=== PATIENT | male | born 1990 | race Asian ===

== ENCOUNTER 2018-03-25 12:59 | Emergency (ER) | payer OTHER ==
[~2018-03-25] VITALS: Ht 177.8 cm; Wt 91.1 kg
[2018-03-25 13:02] VITALS: Ht 177.8 cm; Wt 91.1 kg
--- NOTE | 2018-03-25 14:02 | ERD ---
ER Documentation Chief Complaint Chief Complaint right abdominal pain today HPI 27-year-old male presents with complaint of lower right quadrant abdominal pain. Pain started at 12 PM today, states that it was the worst pain he has ever experienced so much so that he was shaking. States that the pain just recently away upon arrival to the ED. Denies treatments. Denies nausea vomiting diarrhea. States that he is not hungry. He is able to ambulate normally. Denies testicular pain or dysuria. Denies past medical history. Denies allergies. Denies medications. Denies surgeries. States that he has about 20 drinks a week. ROS All systems reviewed and are negative except as per history of present illness. Medications Home Meds Active Scripts Ibuprofen* (Motrin*) 600 Mg Tab, 600 MG PO Q6 for pain, #30 TAB Prov:LISBETH ARORA 03/25/18 Allergies Allergies: Coded Allergies: No Known Allergy (Unverified , 03/25/18) PMhx/Soc Medical and Surgical Hx: pt denies Medical Hx, pt denies Surgical Hx Hx Alcohol Use: Yes (1-2xa week) Hx Substance Use: No Hx Tobacco Use: Yes Smoking Status: Current some day smoker FmHx Family History: No diabetes, No coronary disease, No other Physical Exam Vitals Vital Signs Date Temp Pulse Resp B/P (MAP) Pulse Ox O2 O2 Flow FiO2 Time Delivery Rate 03/25/18 99.4 72 18 155/86 100 13:02 (109) Physical Exam General: Well developed, well nourished. No acute distress. Heart: RR w/o murmur, rubs, or gallops. Lungs: Clear to auscultation bilaterally w/o wheezes, crackles, rhonchi. Symmetric rise and fall. Equal breath sounds. Abdomen: Soft, nontender, with no rigidity or guarding noted. No masses, lesions, or ecchymoses. Normoactive bowel sounds. No McBurney's point tenderness. Patient ambulatory. No tenderness to palpation in splenic area or splenomegaly. No CVA tenderness. Able to jump up and down exam. : Non tender testes. No edema or erythema noted. No signs of phimoses or torsion. Skin: No rash or other lesions noted. Color normal for ethnicity. Psych: Normal mood and affect. Result Diagram: 03/25/18 1408 03/25/18 1408 Results 24 hrs Laboratory Tests Test 03/25/18 14:08 White Blood Count 11.5 10^3/ul Red Blood Count 5.08 10^6/ul Hemoglobin 15.2 g/dl Hematocrit 45.8 % Mean Corpuscular Volume 90.2 fl Mean Corpuscular Hemoglobin 29.9 pg Mean Corpuscular Hemoglobin Concent 33.2 g/dl Red Cell Distribution Width 12.1 % Platelet Count 199 10^3/UL Mean Platelet Volume 9.9 fl Immature Granulocytes % 0.300 % Neutrophils % 83.0 % Lymphocytes % 7.9 % Monocytes % 7.3 % Eosinophils % 1.1 % Basophils % 0.4 % Nucleated Red Blood Cells % 0.0 /100WBC Immature Granulocytes # 0.040 10^3/ul Neutrophils # 9.6 10^3/ul Lymphocytes # 0.9 10^3/ul Monocytes # 0.8 10^3/ul Eosinophils # 0.1 10^3/ul Basophils # 0.1 10^3/ul Nucleated Red Blood Cells # 0.0 10^3/ul Urine Color YELLOW Urine Clarity CLEAR Urine pH 6.0 Urine Specific [place] 1.012 Urine Ketones NEGATIVE mg/dL Urine Nitrite NEGATIVE mg/dL Urine Bilirubin NEGATIVE mg/dL Urine Urobilinogen NEGATIVE mg/dL Urine Leukocyte Esterase NEGATIVE Megan/ul Urine Microscopic RBC 11 /HPF Urine Microscopic WBC 1 /HPF Urine Mucus FEW /HPF Urine Hemoglobin 1+ mg/dL Urine Glucose NEGATIVE mg/dL Urine Total Protein NEGATIVE mg/dl Sodium Level 143 mmol/L Potassium Level 4.4 mmol/L Chloride Level 101 mmol/L Carbon Dioxide Level 33 mmol/L Anion Gap 9 Blood Urea Nitrogen 14 mg/dl Creatinine 0.91 mg/dl Est Glomerular Filtrat Rate mL/min > 60 mL/min Glucose Level 101 mg/dl Calcium Level 9.6 mg/dl Total Bilirubin 0.6 mg/dl Direct Bilirubin 0.00 mg/dl Indirect Bilirubin 0.6 mg/dl Aspartate Amino Transf (AST/SGOT) 26 IU/L Alanine Aminotransferase (ALT/SGPT) 31 IU/L Alkaline Phosphatase 78 IU/L Total Protein 6.9 g/dl Albumin 4.5 g/dl Globulin 2.40 g/dl Albumin/Globulin Ratio 1.87 Lipase 73 U/L Procedures/[facility] REPORT Patient: CODEY JAMIL : 1990 Age: 27 Sex: M [id number] DOS: 03/25/18 1351 Ordering MD: LISBETH ARORA Location: [facility] Room/Bed: PROCEDURE: CT ABDOMEN AND PELVIS WITHOUT CONTRAST. CLINICAL INDICATION: Abdominal pain TECHNIQUE: CT scan of the abdomen and pelvis without contrast was performed on a multidetector high-resolution CT scanner. The patient was scanned without intravenous contrast. Coronal and sagittal reformatted images were obtained from the axial source images. Images were reviewed on a high-resolution PACS workstation. The total exam CTDI equals 14 mGy and the total exam DLP equals 114.6 mGy-cm. One or more of the following dose reduction techniques were used: Automated exposure control. Adjustment of the mA and/or kV according to patient size. Use of iterative reconstruction technique. DICOM images are available COMPARISON: None FINDINGS: CT abdomen: The lung bases are clear. The heart size is within normal limits. There is no significant pericardial effusion. Hepatic morphology is within normal limits. No gross contour deforming masses. Gallbladder is unremarkable. No evidence of intrahepatic or extrahepatic biliary dilatation. The spleen and pancreas are within normal limits. Both adrenal glands are within normal limits. Both kidneys are in normal anatomic position. No evidence of obstruction or hydronephrosis. No gross renal/ureteric calculi. The visualized GI tract demonstrate normal caliber loops of small and large bowel. No evidence of bowel obstruction. The appendix is within normal limits. The unenhanced aorta is unremarkable. No significant retroperitoneal lymphadenopathy. CT pelvis: The bladder is within normal limits. The prostate is normal size. Rectosigmoid colon demonstrates stool and diverticulosis. No significant free fluid. Same pelvic lymphadenopathy. There is a calcification overlying the region of the left UVJ. The visualized osseous structures appears to be within normal limits. IMPRESSION: 1. Calcification overlying the left UVJ. Suspect pelvic phlebolith. No evidence of left-sided obstructive uropathy or perinephric fatty stranding. Correlate with clinical symptoms. 2. Otherwise remainder of the unenhanced CT scan abdomen/pelvis is unremarkable. 3. No evidence of acute intra-abdominal/pelvic inflammatory process. No evidence of bowel obstruction. The appendix is within normal limits. 4. The right kidney is unremarkable without evidence of obstructive uropathy. RPTAT: AAPP Popeye Martinez Physician Date Time Electronically viewed and signed by Popeye Martinez Physician on 03/25/2018 15:03 JL/ CC: LISBETH ARORA [id number] ER Course: CBC, CMP, Lipase, UA - Slightly elevated white count otherwise WNL. CT abdomen and pelvis - see results above, no emergent pathology. MDM: 27-year-old male presents with complaint of lower right quadrant abdominal pain. Pain started at 12 PM today, states that it was the worst pain he has ever experienced so much so that he was shaking. States that the pain just recently away upon arrival to the ED. Denies treatments. Denies nausea vomiting diarrhea. States that he is not hungry. He is able to ambulate normally. Denies testicular pain or dysuria. Becuase of concern of possible kidney stone or appendicitis, a UA and abdominal CT were ordered. UA showed only some hematuria but no evidence of infection or kidney stone. CT showed no emergent pathology. No source of infection was noted on labs, exam, or imaging. I have low suspicion for appendicitis due to patient history and exam, including normal abdominal exam, lack of McBurney's point tenderness, ability of patient to jump up and down on exam, and normal CT. I have low suspicion for volvulus or obstruction due to lack of history of biliary emesis and normal physical exam and normal CT. I have low suspicion for testicular torsion or phimosis due to normal exam. I have low suspicion of DKA based on patient history and exam. Patient also has a normal glucose, urinalysis, and lack of signs of dehydration. I have low suspicion for UTI based on patient history and exam and UA. I have low suspicion for adrenal crisis, AAA, mesenterich ischemia, pyelonephritis, cholecystitis, aortic dissecation, MD, pneumonia, or other emergent causes based on patient history, exam, labs and imaging. Based on these findings I do not feel that additional labs, imaging. or antibiotics are necessary. Patient was discharged with strict ER precautions. Patient was recommended to follow-up with PMD and ask about possible urology referall. All questions answered at discharge. Departure Diagnosis: Primary Impression: Abdominal pain Abdominal location: right lower quadrant Qualified Codes: R10.31 - Right lower quadrant pain Condition: Stable LISBETH ARORA Mar 25, 2018 14:02
[2018-03-25] MEDS ORDERED: IBUP-1542 PO (15:20)
== END 2018-03-25 15:30 | disposition home or self-care (01) ==
LOC: FTE 12:59
DX: R10.31 Right lower quadrant pain (principal); F17.210 Nicotine dependence, cigarettes, uncomplicated
CPT/HCPCS: 36415; 74176; 80053; 81001; 83690; 85025; Z7502